=== PATIENT | male | born 1965 | race Caucasian/White ===

== ENCOUNTER 2018-04-26 16:55 | Observation (INO) ==
[2018-04-26] MEDS ORDERED: Albuterol 2.5 MG/3 ML NEBULIZER IH ONE ×2 (20:19→21:05)
--- NOTE | 2018-04-26 20:22 | General Surg History&Physical ---
Date of Encounter: 04/26/18 Time of Encounter: 20:00 Assessment and Plan (1) Acute appendicitis Current Visit: No Status: Acute The assessment and plan as outlined above was discussed with the patient and/or family members who expressed understanding and agreement. All questions were answered. I personally reviewed the CAT scan images. Findings are consistent with acute appendicitis. Patient's clinical history is also consistent. I discussed the risks and benefits with him he wishes to proceed with laparoscopic appendectomy on an urgent basis Qualifiers: Acute appendicitis type: with localized peritonitis Qualified Code(s): K35.3 - Acute appendicitis with localized peritonitis History of Present Illness Chief complaint: Right lower quadrant abdominal pain HPI: Mr. Marie is a 52 year old male Who experienced right lower quadrant pain for 2 days. The pain became unbearable. He has pain with motion. He sought evaluation in the [place] emergency room. He underwent CAT scan demonstrated acute appendicitis. Transfer was arranged to [facility]. I personally reviewed the CAT scan films. Findings are consistent with acute nonperforated appendicitis. He denies shakes chills or fever. He has pain with motion in continuous right lower quadrant pain over McBurney's point Past Med Surg Social Fam HX - Past Medical History Medical history: kidney stones Additional medical history: SLIPPED DISC Psychiatric history: no psych history - Past Surgical History Surgical History: no surgical history - Social History Smoking Status: Current every day smoker Smokeless Tobacco Status: No Alcohol use: none Drug use: none Medications and Allergies No Known Home Drugs 04/26/18 [History] 3 Allergy/AdvReac Type Severity Reaction Status Date / Time No Known Allergies Allergy Verified 04/26/18 13:52 Review of Systems All systems PM: The remainder of the systems were reviewed and are negative General Surgery Exam Initial Vital Signs Temp Pulse Resp BP Pulse Ox 98.3 F 72 17 154/78 92 04/26/18 19:15 04/26/18 19:15 04/26/18 19:15 04/26/18 19:15 04/26/18 19:15 - General physical appearance well developed, well nourished, no distress - Respiratory normal expansion, normal respiratory effort, clear to percussion, clear to auscultation - Cardiovascular Cardiovascular exam: Present: RRR, 15, 16 - Abdomen Abdominal Tenderness: Present: RLQ (Rebound tenderness and involuntary guarding) - Neurologic Present: CN 2-12 grossly intact, normal coordination, normal sensation - Psychiatric Psychiatric general surgery: Present: appropriate, oriented to person, oriented to place, oriented to time, speech is normal, memory intact Results - Labs All other labs normal. - Imaging CT scan - abdomen: image reviewed (I personally reviewed the CAT scan the abdomen findings are consistent with acute appendicitis)
[2018-04-26] MEDS ORDERED: 0.9 % Sodium Chloride 1,000 ML IVC SCH (20:30)
[2018-04-26] MEDS ORDERED: CefOXitin 1,000 MG VIAL ONE (20:46)
--- NOTE | 2018-04-26 21:04 | Anesthesia Evaluation PreOp ---
Date of Encounter: 04/26/18 Time of Encounter: 21:00 - Past History Planned Operation: Lap Appendectomy Cardiac History: Denies any Significant Hx Pulmonary History: Smoker [facility] History: Other (Herniated Disc) Other Medical History: Denies Any Significant HX Anesthesia History: No Prior Anesthetic Complications Alcohol Use: none Drug use: none Medications and Allergies No Known Home Drugs 04/26/18 [History] 3 Allergy/AdvReac Type Severity Reaction Status Date / Time No Known Allergies Allergy Verified 04/26/18 13:52 - Meds/Allergy Pre-op Review Medications Reviewed: Yes Allergies Reviewed: Yes Beta Blockers on Current Med List: No Anesthesia Results - Labs Laboratory Tests 04/26/18 04/26/18 14:00 14:00 Hgb 15.8 Hct 45.3 Plt Count 202 Sodium 131 L Potassium 3.9 BUN 13 Creatinine 1.10 Anesthesia Exam Vital Signs/O2 Sat/Glucose, Most Current Temp Pulse Resp BP Pulse Ox 04/26/18 20:53 99.3 F 94 17 123/72 94 04/26/18 19:15 98.3 F 72 17 154/78 92 Height: 6'1 Weight: 233 lbs NPO (# of Hours): MN Pain Scale: 1 - HEENT Pupil (Motor): Pupils equal, EOMI Mallampati: III Teeth: Missing, Poor dentition Oral Opening: Less than or equal to 3 - [facility] LOC: Oriented [facility] Motor: Normal RUE, Normal LUE, Normal RLE, Normal LLE, Normal Face [facility] Sensory: Normal: RUE, LUE, RLE, LLE, Face - Cardiac Rhythm: Regular Murmur: None JVD: No Carotid Bruit: No - Pulmonary Breath Sounds: bilateral Clear Respiratory Effort: Symmetrical Anesthesia Assess/Plan ASA Score: 2 Modified Jill Scale for Level of Consciousness: Cooperative, oriented, and tranquil Anesthetic Plan: General Monitoring Plan: Standard Monitors Recovery Plan: PACU (Discussed GA, agrees to proceed)
[2018-04-26] MEDS ORDERED: Famotidine 20 MG/2 ML VIAL ONE (21:07)
[2018-04-26] MEDS ORDERED: Acetaminophen IV 1,000 MG/100 ML INFUS..BTL ONE (21:07)
[2018-04-26] MEDS ORDERED: *HR* Midazolam HCl 2 MG/2 ML VIAL ONE (21:13)
[2018-04-26] MEDS ORDERED: *HR* FentaNYL (PF) 100 MCG/2 ML VIAL ONE (21:13)
[2018-04-26] MEDS ORDERED: *HR* Propofol 200 MG/20 ML VIAL IVP ONE (21:13)
[2018-04-26] MEDS ORDERED: Ondansetron 4 MG/2 ML VIAL ONE (21:14)
[2018-04-26] MEDS ORDERED: Dexamethasone 4 MG/ML VIAL ONE (21:14)
[2018-04-26] MEDS ORDERED: Lidocaine -MPF 2% 2 ML VIAL ONE (21:14)
[2018-04-26] MEDS ORDERED: *HR* Succinylcholine 200 MG/10 ML VIAL IVP ONE (21:14)
[2018-04-26] MEDS ORDERED: Lidocaine -MPF 4% 5 ML AMPUL ONE (21:16)
[2018-04-26] MEDS ORDERED: *HR* Rocuronium Bromide 50 MG/5 ML VIAL ONE (21:16)
[2018-04-26] MEDS ORDERED: CefOXitin 2,000 MG VIAL ONE (21:29)
[2018-04-26] MEDS ORDERED: Ketorolac 30 MG/ML VIAL ONE (22:02)
[2018-04-26] MEDS ORDERED: Neostigmine Methylsulfate 3 MG/3 ML SYRINGE ONE (22:08)
[2018-04-26] MEDS ORDERED: *HR* Morphine 10 MG/ML VIAL ONE (22:14)
--- NOTE | 2018-04-26 22:29 | Operative Note ---
Date of procedure: 04/26/18 Pre-op diagnosis: Acute appendicitis Post-op diagnosis: other (perrforated acute appendicitis) Anesthesia: GETA Was there an assistant professor of biochemistry present: No Estimated blood loss (cc): 20 Specimen: appendix Condition: stable Disposition: PACU Procedure in Detail: After informed consent patient taken to the major operative suite placed supine position given adequate general anesthetic. The abdomen was prepped and draped in sterile fashion utilizing ChloraPrep and standard draping techniques. Timeout was taken and the patient was identified. I made a vertical midline incision below the umbilicus and dissected down the level of fascia. The abdomen was entered visually placed a Barton trocar as is my usual technique. I placed a 5 mm trocar in the suprapubic area 12 mm trocar in the right upper quadrant. I divided the lateral attachments to the cecum. The appendix was mobilized. The midportion the appendix was perforated with a small fecalith in the peritoneal cavity and some surrounding free pus. I divided the appendix off the base the cecum with a gastrointestinal stapling device. I divided the mesial appendix with a vascular staple load. The appendix was recovered in the specimen bag. I irrigated with copious amounts of antibiotic containing solution. There is no evidence of bleeding. All staple lines were intact. He tolerated the procedure very well. All trochars were removed. Fascia was closed with 0 Vicryl. Subcutaneous tissues closed with 2-0 Vicryl. Subcuticular was closed with 4-0 Vicryl
--- NOTE | 2018-04-26 23:43 | Anesthesia Evaluation Post Op ---
Date of Encounter: 04/26/18 Time of Encounter: 23:20 - Vital Signs Vital Signs: Vital Signs/O2 Sat/Glucose, Most Current Temp Pulse Resp BP Pulse Ox 04/26/18 23:02 99 F 75 16 115/73 94 04/26/18 22:53 67 16 114/71 94 04/26/18 22:43 70 16 104/73 93 04/26/18 22:33 99.6 F 76 18 133/74 94 04/26/18 20:53 99.3 F 94 17 123/72 94 - Lungs Lungs: Clear Ascult./Percussion - Airway Airway: Non-obstructed - Cardiovascular Regular Rate - Mental Status Mental Status: Alert & Oriented, Answers Appropriately - Pain Pain Scale: 0 - Nausea Vomiting Nausea Vomiting: Not Present - Hydration Hydration: Ice chips - Discharge PostOp Status: Transfer Patient to floor
[2018-04-27] MEDS: Ondansetron 4 MG/2 ML VIAL IVP PRN ×2 (02:12→21:43)
[2018-04-27] MEDS: cefOXitin 2,000 MG in Water for inj. (sterile) 20 ML 20 ML IVP SCH ×3 (02:12→17:42)
[2018-04-27] MEDS: OXYCODONE Oral CONC 10 MG/0.5 ML ORAL.SYG SL PRN ×2 (02:13→11:40)
[2018-04-27] MEDS: 0.9 % Sodium Chloride 1,000 ML IVC SCH ×2 (06:44→15:30)
--- NOTE | 2018-04-27 15:02 | General Surgery Progress Note ---
<Gregorio Encarnacion R - Last Filed: 04/27/18 14:57> Date of Encounter: 04/27/18 Time of Encounter: 09:15 - Assessment and Plan (1) Acute appendicitis with rupture Current Visit: Yes Status: Acute POD #1 S/P laparoscopic appendectomy by Dr. Mclean on 04/26/2018 Appendicitis was complicated by perforation. Patient is doing well on the postoperative state. Adequate pain control. Vital signs are stable within normal limits, afebrile. Leukocytosis present on admission Plan: IV fluids Continue antibiotics-cefoxitin Comfort care and pain management Ambulate hallways 3 times a day with assistance Incentive spirometry at least once per hour while awake Clear liquid diet Repeat a.m. labs Subjective Patient reports: no new complaints, pain is less, voiding w/o difficulty, no bowel movement, afebrile Narrative: Patient was seen and evaluated at the bedside this morning on morning rounds. Patient states that he is doing well. Postoperative pain is well controlled. Patient denies nausea, vomiting, diarrhea, fever. Patient is tolerating clear liquid diet. Objective Vital Signs - Last 8 Hours Temp Pulse Resp BP Pulse Ox 04/27/18 10:21 98.3 F 75 18 130/71 92 04/27/18 07:29 98.5 F 75 18 124/75 92 Intake and Output 04/26/18 04/27/18 04/27/18 23:59 07:59 15:59 Intake Total 20 / 20 960 / 960 Output Total 20 / 20 25 / 25 0 / 0 Balance -20 / -20 -5 / -5 960 / 960 Intake: IV Fluids 20 / 20 Mefoxin 2,000 MG In Water for 20 / 20 inj. (sterile) 20 ML @ 300 mls/ hr IVP [facility]H [facility] Rx#:[id number] Oral 960 / 960 Output: Urine 25 / 25 0 / 0 Estimated Blood Loss 20 / 20 Other: Meal Lunch Percent of Meal Consumed 0% Weight 105.9 kg - General physical appearance no distress, no pain - Eyes PERRL, normal ocular movement - ENT normal mucosa, atraumatic, normocephalic - Neck Neck exam: trachea midline - Respiratory clear to auscultation - Cardiovascular Cardiovascular exam: Present: RRR - Abdomen Abdomen: Present: bowel sounds present, soft, tender (Expected postsurgical tenderness) - Incision Incision: Present: clean and dry, intact, approximated - Integumentary no rash - Neurologic CN 2-12 grossly intact - Psychiatric oriented to time, oriented to person, oriented to place, speech is normal - VTE Documentation of Mechanical Device: Intermittent pneumatic compression device Consult Discharge Plan - Plan Referrals: NONE,PCP [Primary Care Provider] - <Desmond Mclean - Last Filed: 04/27/18 16:08> Date of Encounter: 04/27/18 - Assessment and Plan (1) Acute appendicitis Current Visit: No Status: Inactive Qualifiers: Acute appendicitis type: with localized peritonitis Qualified Code(s): K35.3 - Acute appendicitis with localized peritonitis Objective Vital Signs - Last 8 Hours Temp Pulse Resp BP Pulse Ox 04/27/18 14:59 99.1 F 72 18 126/71 90 04/27/18 10:21 98.3 F 75 18 130/71 92 Intake and Output 04/27/18 04/27/18 04/27/18 07:59 15:59 23:59 Intake Total 20 1960 / 1960 Output Total 525 / 525 Balance -5 / -5 1435 / 1435 Intake: IV Fluids 20 / 20 1000 / 1000 0.9 % Sodium Chloride 1,000 ML 1000 / 1000 @ 75 mls/hr IVC .[id number] [facility] Rx #:[id number] Mefoxin 2,000 MG In Water for 20 / 20 inj. (sterile) 20 ML @ 300 mls/ hr IVP Q8H [facility] Rx#:[id number] Oral 960 / 960 Output: Urine 525 / 525 Other: Meal Lunch Percent of Meal Consumed 0% - Attending Attestation I examined this patient and my medical decision-making was reviewed with the Resident Physician. I agree with the documented findings, disposition and treatment plan as described except to the extent set forth below. The patient is seen and evaluated on morning rounds with resident. He is postoperative day 1 from laparoscopic appendectomy. He continues to have some pain and discomfort. We will continue IV antibiotics today for fully perforated appendicitis. Desmond Mclean MD FACS
[2018-04-27] MEDS: *HR* OxyCODONE/APAP 5/325 TABLET PO PRN (21:43)
[2018-04-28] MEDS: *HR* OxyCODONE/APAP 5/325 TABLET PO PRN ×2 (02:51→07:08)
[2018-04-28] MEDS: cefOXitin 2,000 MG in Water for inj. (sterile) 20 ML 20 ML IVP SCH ×2 (02:52→08:56)
[2018-04-28 04:49] LABS: Basophils % 0.2 %; Eosinophils # 0.1 K/mcL (0.0-0.6); Eosinophils % 0.9 %; Hematocrit 39.4 % (37.5-50.1); Hemoglobin 13.5 g/dL (12.9-16.9); Immature Granulocytes % 0.5 % (0-4); Lymphocytes # 2.2 K/mcL (0.6-4.6); Lymphocytes % 14.4 %; Mean Corpuscular HGB Conc 34.3 g/dL (31.6-35.5); Mean Corpuscular Hemoglobin 31.4 pg (28.0-33.3); Mean Corpuscular Volume 91.6 fL (83.0-100.0); Mean Platelet Volume 10.9 fL (9.4-12.4); Monocytes % 6.2 %; Neutrophils # 11.9 K/mcL (1.6-8.9); Platelet Count 166 K/mcL (140-400); Red Cell Distribution Width 13.9 % (11.5-14.5); Segmented Neutrophils % 77.8 %
[2018-04-28] MEDS: 0.9 % Sodium Chloride 1,000 ML IVC SCH (05:05)
[2018-04-28] MEDS: Ondansetron 4 MG/2 ML VIAL IVP PRN (05:06)
[2018-04-28 05:14] LABS: BUN/Creatinine Ratio 11 (6-26); Blood Urea Nitrogen 12 mg/dL (6-20); Calcium 8.4 mg/dL (8.6-10.3); Carbon Dioxide 26 mEq/L (23-29); Chloride 103 mEq/L (98-107); Glucose 103 mg/dL (70-105); Osmolality,Calculated 276 (280-300); Potassium 3.6 mEq/L (3.5-5.1); Sodium 133 mEq/L (136-145); eGFR For Non-African Americans > 60 (> 60)
[2018-04-28 07:09] VITALS: BP 129/78
--- NOTE | 2018-04-28 09:48 | Discharge Summary ---
<Bessy Byrnes L - Last Filed: 04/28/18 09:49> Orders not resulted at time of discharge: Pending orders 04/26/18 22:17 Surgical Pathology [PTH] Routine Date of Encounter: 04/28/18 Time of Encounter: 07:45 - Discharge Diagnosis (1) Status post appendectomy Priority: Primary Status: Acute (2) Acute appendicitis with rupture Priority: Primary Status: Acute General Surgery Exam Initial Vital Signs Temp Pulse Resp BP Pulse Ox 98.3 F 72 17 154/78 92 04/26/18 19:15 04/26/18 19:15 04/26/18 19:15 04/26/18 19:15 04/26/18 19:15 Vital Signs Temp Pulse Resp BP Pulse Ox 04/28/18 07:00 98.1 F 82 18 129/78 92 04/28/18 03:30 99.6 F 81 18 91/52 93 04/27/18 23:41 98.4 F 82 18 118/74 93 04/27/18 18:57 98.9 F 52 18 105/63 93 04/27/18 14:59 99.1 F 72 18 126/71 90 04/27/18 10:21 98.3 F 75 18 130/71 92 Intake and Output 04/27/18 04/28/18 04/28/18 23:59 07:59 15:59 Intake Total / 20 1020 / 1020 240 / 240 Output Total 1850 / 1850 960 / 960 Balance -1830 / -1830 60 / 60 240 / 240 Intake: IV Fluids 20 / 20 1020 / 1020 0.9 % Sodium Chloride 1,000 ML 1000 / 1000 @ 75 mls/hr IVC .[id number] [facility] Rx #:[id number] Mefoxin 2,000 MG In Water for 20 / 20 20 / 20 inj. (sterile) 20 ML @ 300 mls/ hr IVP Q8H [facility] Rx#:[id number] Oral 240 / 240 Output: Urine 1850 / 1850 960 / 960 Other: Meal Breakfast Percent of Meal Consumed 100% # Voids 1 VITAL SIGNS: Reviewed. See [facility] GENERAL: In no apparent distress. HEENT: Normocephalic, atraumatic, pupils are equal and reactive, extraocular motions intact, oropharynx is pink and moist, there is no neck adenopathy or JVD noted. CHEST/RESPIRATORY: The thorax is free from signs of trauma. Lung sounds: clear to auscultation, normal respiratory effort CARDIAC: Regular rate and rhythm. Normal S1 and S2, without murmurs, gallops, or rubs. VASCULAR: No Edema. 2+ peripheral pulses. ABDOMEN: soft, expected postoperative tenderness, active bowel sounds INCISION: Surgical incision is clean, dry, and intact. There are no signs of cellulitis or infection noted. WOUNDS/DRAINS: MUSCULOSKELETAL: Good range of motion of all major joints. Extremities without clubbing, cyanosis or edema. NEUROLOGIC EXAM: Alert and oriented x 3. Speech normal. Follows commands. PSYCHIATRIC: Mood normal. SKIN: No rash or lesions. - Hospital Course Hospital course: Mr. Marie is a 52 year old male who presented on 04/26/2018 with a 2 day history of right lower quadrant pain. A CT of the abdomen and pelvis demonstrated acute appendicitis. He was taken to the operating room where he underwent an uncomplicated laparoscopic appendectomy. He was noted per the operative report to have a midportion perforation with a small fecal live in the peritoneal cavity in some surrounding free pus. No drain was placed. The abdomen was irrigated with copious amounts of antibiotic solution. He is tolerating a diet without nausea or vomiting, ambulating without difficulty, voiding without difficulty, and abdominal discomfort is controlled. We will begin discharge planning to home with a 7 day course of Cipro and Flagyl. He will have a follow -up in the office on May 07. - Time Spent with Patient Total time spent providing and/or coordinating discharge services: Less than 30 minutes - Discharge Medications Prescriptions: OxyCODONE/APAP 5/325 [Percocet 5/325 MG] 1 each PO Q6HR PRN 7 Days #28 tablet PRN Reason: Pain Ciprofloxacin [Cipro] 500 mg PO BID #14 tablet Docusate Sodium [Colace] 100 mg PO BID #30 capsule Ibuprofen 800 mg PO Q8H #30 tablet metroNIDAZOLE [Metronidazole] 500 mg PO TID #21 tablet Home Medications: Ciprofloxacin [Cipro] 500 mg PO BID #14 tablet 04/28/18 [Rx] Docusate Sodium [Colace] 100 mg PO BID #30 capsule 04/28/18 [Rx] Ibuprofen 800 mg PO Q8H #30 tablet 04/28/18 [Rx] OxyCODONE/APAP 5/325 [Percocet 5/325 MG] 1 each PO Q6HR PRN 7 Days #28 tablet [Rx] metroNIDAZOLE [Metronidazole] 500 mg PO TID #21 tablet 04/28/18 [Rx] Allergies/Adverse Reactions: 3 Allergy/AdvReac Type Severity Reaction Status Date / Time No Known Allergies Allergy Verified 04/26/18 13:52 Date of admission: 04/26/18 19:07 Primary care physician: PCP NONE Discharging clinician: Desmond Byrnes) Anticipated date of discharge: 04/28/18 Labs on day of discharge: Labs from last 24 hours 04/28/18 04/28/18 04:31 04:31 WBC 15.3 H RBC 4.30 Hgb 13.5 D Hct 39.4 MCV 91.6 MCH 31.4 MCHC 34.3 RDW 13.9 Plt Count 166 MPV 10.9 Immature Gran % 0.5 Seg Neutrophils % 77.8 Lymphocytes % 14.4 Monocytes % 6.2 Eosinophils % 0.9 Basophils % 0.2 Neutrophils # 11.9 H Lymphocytes # 2.2 Monocytes # 1.0 Eosinophils # 0.1 Basophils # 0.0 Sodium 133 L Potassium 3.6 Chloride 103 Carbon Dioxide 26 BUN 12 Creatinine 1.05 Est GFR ( Amer) > 60 Est GFR (Non-Af Amer) > 60 BUN/Creatinine Ratio 11 Glucose 103 Calculated Osmolality 276 L Calcium 8.4 L - Patient Status Disposition: Home, Self-Care Condition: Good Functional capacity at discharge: independent ambulation Overall status at discharge: patient is progressing back to baseline - Discharge Instructions Instructions: Appendicitis (DC), Laparoscopic Appendectomy (DC) Follow Up With: Bessy Byrnes HANDLING TECH [Advanced Practice Nurse] - 05/07/18 2:45 pm NONE,PCP [Primary Care Provider] - Forms: Inpatient Work/School Release Additional Instructions: General Surgical Discharge Instructions 1. No pushing, pulling, or lifting greater than 15 lbs for 2-4 weeks (depending upon procedure). 2. You may shower beginning today, but no tub baths, soaking, or swimming for 2 weeks. 3. You may resume driving when you are off narcotics and are safe to react in a car. 4. Take ibuprofen every 8 hours for discomfort. If this does not relieve discomfort, you may take the as needed Percocet. Take narcotics as directed. Do not take more narcotics then directed and do not share your narcotics with any other person. Do not drink alcohol while on narcotics. 5. Take stool softeners (Colace) or a water based laxative (Miralax) while taking narcotics. You may hold for loose stools. 6. Report any fevers greater than 100.5F, increase abdominal discomfort, drainage that looks like pus, increased redness or pain at the surgical site, or any vomiting. 7. Report any pain in the calves, shortness of breath, or rapid heartbeat. 8. Follow-up in the office as directed. 9. If you were prescribed antibiotics, do not stop them without talking to your provider. Do not drink alcohol while taking metronidazole. Refrain from drinking alcohol for 48 hours after completing metronidazole. Drinking alcohol while taking metronidazole can cause violent abdominal pain and vomiting - Diet and Activity Activity: increase activity as tolerated Diet: advance to your usual diet <Desmond Mclean - Last Filed: 04/30/18 08:24> Orders not resulted at time of discharge: Pending orders 04/26/18 22:17 Surgical Pathology [PTH] Routine Date of Encounter: 04/28/18 - Discharge Diagnosis (1) Acute appendicitis Status: Inactive Qualifiers: Acute appendicitis type: with localized peritonitis Qualified Code(s): K35.3 - Acute appendicitis with localized peritonitis General Surgery Exam Initial Vital Signs Temp Pulse Resp BP Pulse Ox 98.3 F 72 17 154/78 92 04/26/18 19:15 04/26/18 19:15 04/26/18 19:15 04/26/18 19:15 04/26/18 19:15 - Hospital Course Hospital course: Mr. Marie is a 52 year old male - Time Spent with Patient Total time spent providing and/or coordinating discharge services: Date of admission: 04/26/18 19:07 Primary care physician: PCP NONE - Attending Attestation I examined this patient and my medical decision-making was reviewed with the Resident Physician. I agree with the documented findings, disposition and treatment plan as described except to the extent set forth below. The patient is seen and evaluated with resident and the clinical nurse practitioner. He is doing well after laparoscopic appendectomy. He is ready for discharge home on oral antibiotics for 7-10 days. I will see him in office in follow-up. Ready for discharge. Desmond Mclean MD FACS
== END 2018-04-28 11:40 | disposition home or self-care (01) ==
LOC: 3ANU
PROVIDERS: ADMIT Surgery; ATTEND Surgery